=== PATIENT | female | born 1980 | race Caucasian/White ===

== ENCOUNTER 2017-08-01 12:40 | Emergency (ER) | payer MEDICAID ==
[2017-08-01 13:02] VITALS: BP 113/79; PULSE 87; RESP 18; TEMP 98.1; O2SAT 100
--- NOTE | 2017-08-01 16:18 | C.PDOC ---
History Of Present Illness 37 y/o female presents to ED with complaints of subjective fever, chills and dry cough for 2 days. Patient denies recent travel, sick contacts, nausea, vomiting or any other complaints at this time. Chief Complaint (Nursing): Cough, Cold, Congestion History Per: Patient History/Exam Limitations: no limitations Onset/Duration Of Symptoms: Days Current Symptoms Are (Timing): Still Present Past Medical History Reviewed: Historical Data, Nursing Documentation, Vital Signs Vital Signs: Last Vital Signs Temp 98.1 F 08/01/17 13:00 Pulse 87 08/01/17 13:00 Resp 18 08/01/17 13:00 BP 113/79 08/01/17 13:00 Pulse Ox 100 08/01/17 16:18 - Medical History PMH: Anemia Surgical History: Appendectomy Family History: States: No Known Family Hx - Social History Hx Alcohol Use: Yes Hx Substance Use: No - Immunization History Hx Tetanus Toxoid Vaccination: No Hx Influenza Vaccination: No Hx Pneumococcal Vaccination: No Review Of Systems Constitutional: Positive for: Fever, Chills ENT: Negative for: Throat Pain Cardiovascular: Negative for: Chest Pain Respiratory: Positive for: Cough. Negative for: Shortness of Breath Gastrointestinal: Negative for: Nausea, Vomiting Skin: Negative for: Rash Physical Exam - Physical Exam Appears: Non-toxic, No Acute Distress Skin: Normal Color, Warm, Dry, No Rash Head: Atraumatic, Normacephalic Eye(s): bilateral: Normal Inspection, PERRL, EOMI Ear(s): Bilateral: Normal Nose: Normal Oral Mucosa: Moist Throat: Normal, No Erythema, No Exudate Neck: Supple Cardiovascular: Rhythm Regular Respiratory: Normal Breath Sounds, No Rales, No Rhonchi, No Wheezing Gastrointestinal/Abdominal: Soft, No Tenderness, No Guarding, No Rebound Neurological/Psych: Oriented x3, Normal Speech Gait: Steady ED Course And Treatment O2 Sat by Pulse Oximetry: 100 (RA) Pulse Ox Interpretation: Normal Disposition - [facility] - Disposition: HOME/ ROUTINE Disposition Time: 13:40 Condition: GOOD Additional Instructions: Thank you for letting us take care of you today. The emergency medical care you received today was directed at your acute symptoms. If you were prescribed any medication, please fill it and take as directed. It may take several days for your symptoms to resolve. Return to the Emergency Department if your symptoms worsen, do not improve, or if you have any other problems. Please contact your doctor or call one of the physicians/clinics you have been referred to that are listed on the Patient Visit Information form that is included in your discharge packet. Bring any paperwork you were given at discharge with you along with any medications you are taking to your follow up visit. Our treatment cannot replace ongoing medical care by a primary care provider (PCP) outside of the emergency department. Thank you for allowing the [facility] team to be part of your care today. Follow up with your primary doctor in 2-3 days or re-evaluation and further management. Ganesh por dejarnos atenderlo hoy. La atencin mdica de emergencia que recibi hoy estaba dirigida a nathalia sntomas agudos. Si le prescribieron algn medicamento, llnelo y tome segn las indicaciones. Nathalia sntomas pueden tardar varios alexander en resolverse. Regrese al Departamento de Emergencia si nathalia s ntomas empeoran, no mejoran o si tiene algn otro problema. Comunquese con soto mdico o llame a evon de los mdicos / clnicas a los que caceres sido referido que figura en el formulario de Informacin de visita del paciente que se incluye en soto paquete de jus. Traiga todos los documentos que recibi al momento del jus junto con los medicamentos que est tomando en soto visita de seguimiento. Nuestro tratamiento no puede reemplazar la atencin mdica en curso por parte de un proveedor de atencin primaria (PCP) fuera del departamento de emergencias. Ganesh por permitir que el equipo de [facility] sea parte de soto cuidado hoy. Maria De Jesus un seguimiento con soto mdico primario en 2-3 alexander o reevale y administre m s a fondo. Prescriptions: Benzonatate [Tessalon Perles] 100 mg PO Q8 PRN #20 sgl PRN Reason: Cough Ibuprofen [Motrin] 600 mg PO Q6 PRN #20 tab PRN Reason: Pain, Moderate (4-7) Instructions: Upper Respiratory Infection (ED) Forms: Gen Discharge Inst Kinyarwanda Print Language: TURKS [place] - Clinical Impression Clinical Impression: Viral disease - Scribe Statement The provider has reviewed the documentation as recorded by the Seymouribmylene Miller All medical record entries made by the Seymouribmylene were at my direction and personally dictated by me. I have reviewed the chart and agree that the record accurately reflects my personal performance of the history, physical exam, medical decision making, and the department course for this patient. I have also personally directed, reviewed, and agree with the discharge instructions and disposition.
== END 2017-08-01 14:23 | disposition home or self-care (01) ==
LOC: C.ER 12:40
DX: B34.9 Viral infection, unspecified (principal)

== ENCOUNTER 2017-11-06 23:25 | Observation (INO) | payer MEDICAID ==
[2017-11-07] MEDS ORDERED: Sodium Chloride 0.9% 1,000 ML IV ONE ×2 (00:12→05:23)
--- NOTE | 2017-11-07 00:25 | C.PDOC ---
History Of Present Illness 37 y/o female with a PMHx of anemia, presents to the emergency department complaining of abdominal pain, body aches, subjective fever, and diarrhea for 3 days. No cough, sore throat, or sick contacts. Patient did not receive flu shot this year. Time Seen by Provider: 11/07/17 00:05 Chief Complaint (Nursing): GI Problem History Per: Patient History/Exam Limitations: no limitations Onset/Duration Of Symptoms: Days (x3) Current Symptoms Are (Timing): Still Present Associated Symptoms: Fever, Diarrhea Past Medical History Reviewed: Historical Data, Nursing Documentation, Vital Signs Vital Signs: Last Vital Signs Temp 98.2 F 11/09/17 08:07 Pulse 79 11/09/17 08:07 Resp 20 11/09/17 08:07 BP 107/67 11/09/17 08:07 Pulse Ox 97 11/09/17 08:07 - Medical History PMH: Anemia Surgical History: Appendectomy Family History: States: No Known Family Hx - Social History Hx Alcohol Use: Yes Hx Substance Use: No - Immunization History Hx Tetanus Toxoid Vaccination: No Hx Influenza Vaccination: No Hx Pneumococcal Vaccination: No Review Of Systems Except As Marked, All Systems Reviewed And Found Negative. Constitutional: Positive for: Fever, Other (Body aches) ENT: Negative for: Throat Pain Respiratory: Negative for: Cough, Shortness of Breath Gastrointestinal: Positive for: Abdominal Pain, Diarrhea. Negative for: Vomiting Physical Exam - Physical Exam Appears: Non-toxic, No Acute Distress Skin: Normal Color, Warm, Dry Head: Atraumatic, Normacephalic Eye(s): bilateral: Normal Inspection, PERRL, EOMI Ear(s): Bilateral: Normal Nose: Normal Oral Mucosa: Moist Throat: Normal Neck: Normal ROM, Supple Chest: Symmetrical Cardiovascular: Rhythm Regular, No Murmur Respiratory: Normal Breath Sounds, No Accessory Muscle Use Gastrointestinal/Abdominal: Soft, Tenderness (Mild nonfocal tenderness), No Distention Extremity: Bilateral: Atraumatic, Normal Color And Temperature, Normal ROM Neurological/Psych: Oriented x3, Normal Speech ED Course And Treatment - Laboratory Results Result Diagrams: 11/08/17 07:42 11/08/17 07:42 O2 Sat by Pulse Oximetry: 100 (RA) Pulse Ox Interpretation: Normal - CT Scan/US CT abd/pelvis Other Rad Studies (CT/US): Read By Radiologist, Radiology Report Reviewed CT/US Interpretation: FINDINGS: Lower thorax: No acute findings. ABDOMEN: Liver: Fatty liver. Gallbladder and bile ducts: Unremarkable. No ductal dilation. Pancreas: Unremarkable. No mass. No ductal dilation. Spleen: Unremarkable. No splenomegaly. Adrenals: Unremarkable. No mass. Kidneys and ureters: Nonobstructive left upper pole renal stone. Stomach and bowel: There is diffuse colonic thickening with intraluminal fluid suspicious for. infectious or inflammatory colitis. There are nonspecific fluid filled small bowel loops. These findings. can represent ileus versus enteritis versus slow transit versus peristalsis. No obstruction. Appendix: The appendix is not seen. PELVIS: Bladder: Bladder distention. Correlation with patient's voiding status is recommended. Reproductive: Enlarged uterus with multiple uterine fibroids. ABDOMEN and PELVIS: Intraperitoneal space: Unremarkable. No free air. No significant fluid collection. Bones/joints: No acute fracture. No dislocation. Soft tissues: There is a fat-containing umbilical hernia. Vasculature: Unremarkable. No abdominal aortic aneurysm. Lymph nodes: Multiple subcentimeter mesenteric and ileocolic lymph nodes. Findings are. nonspecific but may represent mesenteric adenitis. IMPRESSION: 1. There is diffuse colonic thickening with intraluminal fluid suspicious for infectious or inflammatory. colitis. 2. Enlarged uterus with multiple uterine fibroids. Correlation with internal medicine/gastroenterology evaluation and further workup or followup as. recommended by patient's clinical data. Medical Decision Making Medical Decision Making: Impression: 37 year old with abdominal pain, subjective fever, diarrhea, bodyaches Time: 00:12 Initial Plan: * Lipase * CMP * CBC * PTT * Prothrombin time * HCG, qualitative urine * Urinalysis * Tylenol 975 mg PO * IV fluids * Flu swab Labs reviewed. Hemoglobin is at baseline. Negative flu. Potassium is low. 2:19 Ordered 40 meq potassium chloride PO and 4 mg Zofran IVP. Pending CT abd/ pelvis without contrast. IMPRESSION: 1. There is diffuse colonic thickening with intraluminal fluid suspicious for infectious or inflammatory colitis. 2. Enlarged uterus with multiple uterine fibroids. Correlation with internal medicine/gastroenterology evaluation and further workup or followup as recommended by patient's clinical data. 500 pt reassesed states feels well to go home, however upon dc pt states she still feels too weak and lightheaded for dc. will obs for colitis, dehydration, hypokalemia, Disposition - Disposition Disposition: HOME/ ROUTINE Disposition Time: 05:06 Condition: STABLE - Clinical Impression Clinical Impression: Colitis - Scribe Statement The provider has reviewed the documentation as recorded by the Scribe (Tala Mishra) Provider Attestation: All medical record entries made by the Scribe were at my direction and personally dictated by me. I have reviewed the chart and agree that the record accurately reflects my personal performance of the history, physical exam, medical decision making, and the department course for this patient. I have also personally directed, reviewed, and agree with the discharge instructions and disposition.
[2017-11-07] MEDS ORDERED: Sodium Chloride 0.9% 1,000 ML ONE (01:45)
[2017-11-07 01:56] LABS: BASO % 0.7 % (0.0-2.0); HEMOGLOBIN 9.9 g/dL (11.0-16.0); LYMPH # 0.9 K/uL (1.0-4.3); LYMPH % 13.8 % (20.0-40.0); MEAN CELL VOLUME 76.3 fL (81.0-99.0); MEAN CORPUSCULAR HEMOGLOBIN 24.9 pg (27.0-31.0); MEAN CORPUSCULAR HGB CONC 32.6 g/dL (33.0-37.0); MONO # 0.4 K/uL (0.0-0.8); MONO % 5.7 % (0.0-10.0); NEUT # 5.4 K/uL (1.8-7.0); NEUT % 79.8 % (50.0-75.0); NRBC % 0.1 % (0.0-2.0); RBC 3.98 Mil/uL (3.80-5.20); WHITE BLOOD COUNT 6.7 K/uL (4.8-10.8)
[2017-11-07 02:04] LABS: INR 1.1; PROTHROMBIN TIME 12.8 SECONDS (9.7-12.2)
[2017-11-07 02:18] LABS: ALBUMIN 3.6 g/dL (3.5-5.0); ALT/SGPT 24 U/L (9-52); AST/SGOT 23 U/L (14-36); BLOOD UREA NITROGEN 9 mg/dL (7-17); CALCIUM 8.2 mg/dl (8.6-10.4); GFR AFRICAN-AMERICAN > 60; GFR NON-AFRICAN AMERICAN > 60; LIPASE 96 U/L (23-300)
[2017-11-07] MEDS ORDERED: Potassium Chloride 20 mEq ER Tab PO STA (02:19)
[2017-11-07 02:35] LABS: HCG,QUALITATIVE URINE NEGATIVE (NEGATIVE)
[2017-11-07] MEDS ORDERED: Potassium Chloride 20 mEq ER Tab PO ONE (02:50)
[2017-11-07 02:57] LABS: SQUAMOUS EPITHIAL 6 /hpf (0-5); URINE BACTERIA RARE (<OCC); URINE BILIRUBIN NEGATIVE (NEGATIVE); URINE BLOOD TRACE (NEGATIVE); URINE CLARITY Hazy (Clear); URINE COLOR Yellow (YELLOW); URINE GLUCOSE (UA) NORMAL (Normal); URINE HYALINE CAST 0-2 /lpf (0-2); URINE LEUKOCYTE ESTERASE TRACE Leu/uL (Negative); URINE PROTEIN 1+ mg/dL (NEGATIVE); URINE UROBILINOGEN NORMAL mg/dL (0.2-1.0)
[2017-11-07] MEDS ORDERED: Iodixanol 320 MG/ML 100 ML BOTTLE IV ONE (03:55)
--- NOTE | 2017-11-07 04:53 | CT ---
EXAM: CT Abdomen and Pelvis With Intravenous Contrast CLINICAL HISTORY: 37 years old, female; Pain; Abdominal pain; Generalized; Additional info: Upper abd pain TECHNIQUE: Axial computed tomography images of the abdomen and pelvis with intravenous contrast. All CT scans at this facility use one or more dose reduction techniques, viz.: automated exposure control; ma/kV adjustment per patient size (including targeted exams where dose is matched to indication; i.e. head); or iterative reconstruction technique. 594 images are submitted. Coronal and sagittal reformatted images were created and reviewed. Axial reformatted images were created and reviewed. CONTRAST: 100 mL of [id number] administered intravenously. COMPARISON: No relevant prior studies available. FINDINGS: Lower thorax: No acute findings. ABDOMEN: Liver: Fatty liver. Gallbladder and bile ducts: Unremarkable. No ductal dilation. Pancreas: Unremarkable. No mass. No ductal dilation. Spleen: Unremarkable. No splenomegaly. Adrenals: Unremarkable. No mass. Kidneys and ureters: Nonobstructive left upper pole renal stone. Stomach and bowel: There is diffuse colonic thickening with intraluminal fluid suspicious for infectious or inflammatory colitis. There are nonspecific fluid filled small bowel loops. These findings can represent ileus versus enteritis versus slow transit versus peristalsis. No obstruction. Appendix: The appendix is not seen. PELVIS: Bladder: Bladder distention. Correlation with patient's voiding status is recommended. Reproductive: Enlarged uterus with multiple uterine fibroids. ABDOMEN and PELVIS: Intraperitoneal space: Unremarkable. No free air. No significant fluid collection. Bones/joints: No acute fracture. No dislocation. Soft tissues: There is a fat-containing umbilical hernia. Vasculature: Unremarkable. No abdominal aortic aneurysm. Lymph nodes: Multiple subcentimeter mesenteric and ileocolic lymph nodes. Findings are nonspecific but may represent mesenteric adenitis. IMPRESSION: 1. There is diffuse colonic thickening with intraluminal fluid suspicious for infectious or inflammatory colitis. 2. Enlarged uterus with multiple uterine fibroids. Correlation with internal medicine/gastroenterology evaluation and further workup or followup as recommended by patient's clinical data.
[2017-11-07 07:09] VITALS: RESP 20
[2017-11-07] MEDS: Sodium Chloride 0.9% 1,000 ML IV SCH (10:00)
--- NOTE | 2017-11-07 12:07 | CP.PCM.HP ---
Present on Admission - Present on Admission Any Indicators Present on Admission: No Past Patient History - Infectious Disease Hx of Infectious Diseases: None - Past Medical History & Family History Past Medical History?: Yes - Past Social History Smoking Status: Never Smoked - HEMATOLOGICAL/ONCOLOGICAL Hx Anemia: Yes - MUSCULOSKELETAL/RHEUMATOLOGICAL Hx Falls: No - PSYCHIATRIC Hx Substance Use: No - SURGICAL HISTORY Hx Appendectomy: Yes - ANESTHESIA Hx Anesthesia: Yes Hx Anesthesia Reactions: No Meds Home Medications: Home Medication List Medication Instructions Recorded Confirmed Type Ciprofloxacin [Cipro] 500 mg PO BID #14 tab 11/07/17 Rx metroNIDAZOLE [Flagyl] 500 mg PO TID #21 tab 11/07/17 Rx Allergies/Adverse Reactions: Allergies Allergy/AdvReac Type Severity Reaction Status Date / Time Penicillins Allergy Severe SHORTNESS Verified 11/06/17 23:28 OF BREATH Physical Exam - Constitutional Appears: Well - Head Exam Head Exam: ATRAUMATIC, NORMAL INSPECTION, NORMOCEPHALIC - Eye Exam Eye Exam: EOMI, Normal appearance, PERRL Pupil Exam: NORMAL ACCOMODATION, PERRL - ENT Exam ENT Exam: Mucous Membranes Moist, Normal Exam - Neck Exam Neck exam: Positive for: Normal Inspection - Respiratory Exam Respiratory Exam: Decreased Breath Sounds - Cardiovascular Exam Cardiovascular Exam: REGULAR RHYTHM, +S1, +S2 - GI/Abdominal Exam GI & Abdominal Exam: Diminished Bowel Sounds, Soft - Rectal Exam Rectal Exam: Deferred Results - Vital Signs Recent Vital Signs: Last Vital Signs Temp 98.3 F 11/07/17 08:28 Pulse 78 11/07/17 08:28 Resp 20 11/07/17 08:28 BP 94/60 L 11/07/17 08:28 Pulse Ox 96 11/07/17 08:28 - Labs Result Diagrams: 11/07/17 01:54 11/07/17 01:54 Labs: Laboratory Results - last 24 hr 11/07/17 11/07/17 11/07/17 00:12 01:54 01:54 WBC 6.7 RBC 3.98 Hgb 9.9 L Hct 30.3 L MCV 76.3 L D MCH 24.9 L MCHC 32.6 L RDW 16.0 H Plt Count 362 MPV 8.0 Neut % (Auto) 79.8 H Lymph % (Auto) 13.8 L [place] % (Auto) 5.7 Eos % (Auto) 0.0 Baso % (Auto) 0.7 Neut # (Auto) 5.4 Lymph # (Auto) 0.9 L [place] # (Auto) 0.4 Eos # (Auto) 0.0 Baso # (Auto) 0.0 PT 12.8 H INR 1.1 APTT 29 Sodium Potassium Chloride Carbon Dioxide Anion Gap BUN Creatinine Est GFR ( Amer) Est GFR (Non-Af Amer) Random Glucose Calcium Total Bilirubin AST ALT Alkaline Phosphatase Total Protein Albumin Globulin Albumin/Globulin Ratio Lipase Urine Color Yellow Urine Clarity Hazy Urine pH 6.0 Ur Specific Archer 1.017 Urine Protein 1+ H Urine Glucose (UA) Normal Urine Ketones Negative Urine Blood Trace H Urine Nitrate Negative Urine Bilirubin Negative Urine Urobilinogen Normal Ur Leukocyte Esterase Trace Urine WBC (Auto) 6 H Urine RBC (Auto) 1 Ur Squamous Epith Cells 6 H Urine Bacteria Rare Hyaline Casts 0-2 Urine HCG, Qual Negative Influenza Typ A,B (EIA) 11/07/17 11/07/17 01:54 01:54 WBC RBC Hgb Hct MCV MCH MCHC RDW Plt Count MPV Neut % (Auto) Lymph % (Auto) [place] % (Auto) Eos % (Auto) Baso % (Auto) Neut # (Auto) Lymph # (Auto) [place] # (Auto) Eos # (Auto) Baso # (Auto) PT INR APTT Sodium 137 Potassium 3.0 L Chloride 103 Carbon Dioxide 20 L Anion Gap 18 BUN 9 Creatinine 0.7 Est GFR ( Amer) > 60 Est GFR (Non-Af Amer) > 60 Random Glucose 95 Calcium 8.2 L Total Bilirubin 0.4 AST 23 ALT 24 Alkaline Phosphatase 80 Total Protein 7.2 Albumin 3.6 Globulin 3.5 Albumin/Globulin Ratio 1.0 Lipase 96 Urine Color Urine Clarity Urine pH Ur Specific Archer Urine Protein Urine Glucose (UA) Urine Ketones Urine Blood Urine Nitrate Urine Bilirubin Urine Urobilinogen Ur Leukocyte Esterase Urine WBC (Auto) Urine RBC (Auto) Ur Squamous Epith Cells Urine Bacteria Hyaline Casts Urine HCG, Qual Influenza Typ A,B (EIA) Negative for flu a/b Assessment & Plan - Assessment and Plan (Free Text) Plan: KCl supplementation continue IV Cipro GI consultations Abdominal CT seen Protonix Lovenox Surgical consult as needed
[2017-11-07] MEDS: Ciprofloxacin 400mg/200ml D5W 400 MG/200 ML BAG IVPB SCH ×2 (12:58→13:19)
[2017-11-07] MEDS: metroNIDAZOLE IV 500 mg/100 ml 500 MG/100 ML BAG IVPB SCH ×2 (14:23→21:11)
[2017-11-07 22:57] LABS: BASO % 0.9 % (0.0-2.0); EOS % 0.5 % (0.0-4.0); LYMPH # 1.6 K/uL (1.0-4.3); MEAN CELL VOLUME 76.9 fL (81.0-99.0); MEAN CORPUSCULAR HEMOGLOBIN 24.4 pg (27.0-31.0); MEAN CORPUSCULAR HGB CONC 31.7 g/dL (33.0-37.0); MEAN PLATELET VOLUME 7.7 fL (7.2-11.7); MONO # 0.3 K/uL (0.0-0.8); MONO % 7.7 % (0.0-10.0); NEUT # 2.5 K/uL (1.8-7.0); NEUT % 55.9 % (50.0-75.0); NRBC % 0.1 % (0.0-2.0); RBC 3.67 Mil/uL (3.80-5.20); RED CELL DISTRIBUTION WIDTH 16.1 % (11.5-14.5); WHITE BLOOD COUNT 4.5 K/uL (4.8-10.8)
[2017-11-07 23:10] LABS: ALBUMIN 3.1 g/dL (3.5-5.0); ALT/SGPT 25 U/L (9-52); AST/SGOT 29 U/L (14-36); BLOOD UREA NITROGEN 4 mg/dL (7-17); CALCIUM 7.6 mg/dl (8.6-10.4); GFR AFRICAN-AMERICAN > 60; GFR NON-AFRICAN AMERICAN > 60
[2017-11-08] MEDS: Ciprofloxacin 400mg/200ml D5W 400 MG/200 ML BAG IVPB SCH ×2 (00:10→12:03)
[2017-11-08] MEDS: metroNIDAZOLE IV 500 mg/100 ml 500 MG/100 ML BAG IVPB SCH ×3 (05:38→21:24)
[2017-11-08] MEDS: Sodium Chloride 0.9% 1,000 ML IV SCH ×2 (05:38→10:08)
[2017-11-08 08:06] LABS: BASO % 0.7 % (0.0-2.0); EOS % 1.2 % (0.0-4.0); HEMOGLOBIN 8.1 g/dL (11.0-16.0); LYMPH # 1.7 K/uL (1.0-4.3); LYMPH % 45.3 % (20.0-40.0); MEAN CELL VOLUME 76.3 fL (81.0-99.0); MEAN CORPUSCULAR HEMOGLOBIN 24.8 pg (27.0-31.0); MEAN CORPUSCULAR HGB CONC 32.6 g/dL (33.0-37.0); MEAN PLATELET VOLUME 7.6 fL (7.2-11.7); MONO # 0.4 K/uL (0.0-0.8); MONO % 11.8 % (0.0-10.0); NEUT # 1.5 K/uL (1.8-7.0); NRBC % 0.2 % (0.0-2.0); RBC 3.27 Mil/uL (3.80-5.20); WHITE BLOOD COUNT 3.7 K/uL (4.8-10.8)
[2017-11-08 08:14] LABS: BLOOD UREA NITROGEN 3 mg/dL (7-17); CALCIUM 7.6 mg/dl (8.6-10.4); GFR AFRICAN-AMERICAN > 60; GFR NON-AFRICAN AMERICAN > 60
--- NOTE | 2017-11-08 09:49 | CP.PCM.CON ---
<Nakita Smith - Last Filed: 11/08/17 10:02> History of Present Illness - History of Present Illness History of Present Illness: Gastroenterology Note for Dr. Hancock's Service Reason for Consult: Colitis seen on CT Scan HPI: 37 year old Female with PMHx significant for Iron Deficiency Anemia who presented to the hospital with 3 days of fever, chills, weakness, abdominal pain, and nonbloody diarrhea. Admitted to sick contacts, no recent travel. Patient reports she was cleaning a client's house on , when she noticed the client's was very ill, spending most of his time in the bathroom. The client's just returned from traveling and has profuse diarrhea. Patient reports when she returned home night, she started to have chills. Tuesday afternoon she noticed she started to have subjective fevers. Tuesday evening until day of admission, she started to have profuse nonbloody, diarrhea. CT abdomen and pelvis revealed diffuse colitis. This has never happened to her before. She admits to generalized abdominal pain and continued diarrhea. 12 point ROS unremarkable, unless noted above. PMHx: Iron Deficiency Anemia (requiring a blood transfusion in 06/2017) PSHx: Appendectomy (2000), Endoscopy [place]10 [place] in [place] country 2/2 abdominal pain- results unremarkable) Meds: Iron, MV All: PCN- anaphylaxis SHx: Denied any tobacco, alcohol, or illicit drug use. Employed as a maid. FHx: Unremarkable for GI issues or malignancies Past Patient History - Infectious Disease Hx of Infectious Diseases: None - Past Medical History & Family History Past Medical History?: Yes - Past Social History Smoking Status: Never Smoked - HEMATOLOGICAL/ONCOLOGICAL Hx Anemia: Yes - MUSCULOSKELETAL/RHEUMATOLOGICAL Hx Falls: No - PSYCHIATRIC Hx Substance Use: No - SURGICAL HISTORY Hx Appendectomy: Yes - ANESTHESIA Hx Anesthesia: Yes Hx Anesthesia Reactions: No Meds Home Medications: Home Medication List Medication Instructions Recorded Confirmed Type Ciprofloxacin [Cipro] 500 mg PO BID #14 tab 11/07/17 Rx metroNIDAZOLE [Flagyl] 500 mg PO TID #21 tab 11/07/17 Rx Allergies/Adverse Reactions: Allergies Allergy/AdvReac Type Severity Reaction Status Date / Time Penicillins Allergy Severe SHORTNESS Verified 11/06/17 23:28 OF BREATH - Medications Medications: Current Medications Sodium Chloride (Sodium Chloride 0.9%) 1,000 mls @ 80 mls/hr IV .[id number] [facility] Last Admin: 11/08/17 05:38 Dose: 80 mls/hr Ciprofloxacin (Cipro 400mg/200ml Dsw) 400 mg in 200 mls @ 133 mls/hr IVPB Q12H [facility] PRN Reason: Protocol Last Admin: 11/08/17 00:10 Dose: 133 mls/hr Metronidazole (Flagyl) 500 mg in 100 mls @ 100 mls/hr IVPB Q8 [facility] PRN Reason: Protocol Last Admin: 11/08/17 05:38 Dose: 100 mls/hr Ketorolac Tromethamine (Toradol) 30 mg IVP Q8H PRN PRN Reason: Pain, severe (8-10) Last Admin: 11/07/17 15:38 Dose: 30 mg Ondansetron HCl (Zofran Inj) 4 mg IVP Q6 PRN PRN Reason: Nausea/Vomiting Pantoprazole Sodium (Protonix Inj) 40 mg IVP DAILY [facility] Pneumococcal Polyvalent Vaccine (Pneumovax 23 Vaccine) 0.5 ml IM .ONCE ONE Stop: 11/08/17 10:01 Physical Exam - Constitutional Appears: No Acute Distress - Head Exam Head Exam: NORMAL INSPECTION, NORMOCEPHALIC - Eye Exam Eye Exam: EOMI, Normal appearance, PERRL Pupil Exam: NORMAL ACCOMODATION - ENT Exam ENT Exam: Mucous Membranes Moist - Respiratory Exam Respiratory Exam: Clear to Auscultation Bilateral, NORMAL BREATHING PATTERN. absent: Decreased Breath Sounds, Wheezes - Cardiovascular Exam Cardiovascular Exam: RRR - GI/Abdominal Exam GI & Abdominal Exam: Normal Bowel Sounds, Soft, Tenderness (TTP LLQ, below umbilicus ). absent: Distended, Organomegaly, Rigid - Extremities Exam Extremities exam: Positive for: normal inspection, pedal pulses present. Negative for: pedal edema, tenderness - Back Exam Back exam: NORMAL INSPECTION - Neurological Exam Neurological exam: Alert, CN II-XII Intact, Oriented x3 - Psychiatric Exam Psychiatric exam: Normal Affect, Normal Mood Results - Vital Signs Recent Vital Signs: Last Vital Signs Temp 98.2 F 11/08/17 08:00 Pulse 66 11/08/17 08:00 Resp 20 11/08/17 08:00 BP 108/65 11/08/17 08:00 Pulse Ox 99 11/08/17 08:00 - Labs Result Diagrams: 11/08/17 07:42 11/08/17 07:42 Labs: Laboratory Results - last 24 hr 11/07/17 11/07/17 11/07/17 22:00 22:55 22:55 WBC 4.5 L RBC 3.67 L Hgb 9.0 L Hct 28.2 L MCV 76.9 L MCH 24.4 L MCHC 31.7 L RDW 16.1 H Plt Count 356 MPV 7.7 Neut % (Auto) 55.9 Lymph % (Auto) 35.0 Hughes % (Auto) 7.7 Eos % (Auto) 0.5 Baso % (Auto) 0.9 Neut # (Auto) 2.5 Lymph # (Auto) 1.6 Hughes # (Auto) 0.3 Eos # (Auto) 0.0 Baso # (Auto) 0.0 Sodium 139 Potassium 3.3 L Chloride 106 Carbon Dioxide 22 Anion Gap 14 BUN 4 L Creatinine 0.6 L Est GFR ( Amer) > 60 Est GFR (Non-Af Amer) > 60 Random Glucose 103 Calcium 7.6 L Total Bilirubin 0.2 AST 29 ALT 25 Alkaline Phosphatase 65 Total Protein 6.4 Albumin 3.1 L Globulin 3.2 Albumin/Globulin Ratio 1.0 C. difficile Ag & Toxin Negative 11/08/17 11/08/17 07:42 07:42 WBC 3.7 L RBC 3.27 L Hgb 8.1 L Hct 25.0 L MCV 76.3 L MCH 24.8 L MCHC 32.6 L RDW 16.0 H Plt Count 327 MPV 7.6 Neut % (Auto) 41.0 L Lymph % (Auto) 45.3 H Hughes % (Auto) 11.8 H Eos % (Auto) 1.2 Baso % (Auto) 0.7 Neut # (Auto) 1.5 L Lymph # (Auto) 1.7 Hughes # (Auto) 0.4 Eos # (Auto) 0.0 Baso # (Auto) 0.0 Sodium 138 Potassium 3.4 L Chloride 107 Carbon Dioxide 23 Anion Gap 11 BUN 3 L Creatinine 0.6 L Est GFR ( Amer) > 60 Est GFR (Non-Af Amer) > 60 Random Glucose 81 Calcium 7.6 L Total Bilirubin AST ALT Alkaline Phosphatase Total Protein Albumin Globulin Albumin/Globulin Ratio C. difficile Ag & Toxin Assessment & Plan - Assessment and Plan (Free Text) Assessment: 37 year old Female with PMHx significant for Iron Deficiency Anemia who presented to the hospital with 3 days of fever, chills, weakness, abdominal pain, and nonbloody diarrhea; admitted for colitis. Plan: Colitis Likely Infectious - Gastroenterology consulted - Dr. Hancock - Continue with IVF, Antibiotic Regimen, Advance Diet as Tolerated. - Patient will need outpatient Colonoscopy in 6-8 weeks once colitis has resolved. - Stool studies ordered. - Pain and antiemetic as needed. Imaging: - CT Abdomen/ Pelvis: There is diffuse colonic thickening with intraluminal fluid suspicious for infectious or inflammatory. colitis. Enlarged uterus with multiple uterine fibroids. Medications: - IVF, Ciprofloxacin and Flagyl (11/07/17) Fibroid Uterus - Will need outpatient [employer] follow up Iron Deficiency Anemia - History of blood transfusion - Will need to continue Iron supplements s/p colitis DW Dr. Hancock, Nakita Smith DO, PGY-1 <Dani Hancock - Last Filed: 11/08/17 14:14> Meds - Medications Medications: Current Medications Sodium Chloride (Sodium Chloride 0.9%) 1,000 mls @ 80 mls/hr IV .[id number] [facility] Last Admin: 11/08/17 10:08 Dose: Not Given Ciprofloxacin (Cipro 400mg/200ml Dsw) 400 mg in 200 mls @ 133 mls/hr IVPB Q12H [facility] PRN Reason: Protocol Last Admin: 11/08/17 12:03 Dose: 133 mls/hr Metronidazole (Flagyl) 500 mg in 100 mls @ 100 mls/hr IVPB Q8 [facility] PRN Reason: Protocol Last Admin: 11/08/17 05:38 Dose: 100 mls/hr Ketorolac Tromethamine (Toradol) 30 mg IVP Q8H PRN PRN Reason: Pain, severe (8-10) Last Admin: 11/07/17 15:38 Dose: 30 mg Ondansetron HCl (Zofran Inj) 4 mg IVP Q6 PRN PRN Reason: Nausea/Vomiting Pantoprazole Sodium (Protonix Inj) 40 mg IVP DAILY [facility] Last Admin: 11/08/17 10:06 Dose: 40 mg Results - Vital Signs Recent Vital Signs: Last Vital Signs Temp 98.2 F 11/08/17 08:00 Pulse 66 11/08/17 08:00 Resp 20 11/08/17 08:00 BP 108/65 11/08/17 08:00 Pulse Ox 99 11/08/17 08:00 - Labs Result Diagrams: 11/08/17 07:42 11/08/17 07:42 Labs: Laboratory Results - last 24 hr 11/07/17 11/07/17 11/07/17 22:00 22:55 22:55 WBC 4.5 L RBC 3.67 L Hgb 9.0 L Hct 28.2 L MCV 76.9 L MCH 24.4 L MCHC 31.7 L RDW 16.1 H Plt Count 356 MPV 7.7 Neut % (Auto) 55.9 Lymph % (Auto) 35.0 Hughes % (Auto) 7.7 Eos % (Auto) 0.5 Baso % (Auto) 0.9 Neut # (Auto) 2.5 Lymph # (Auto) 1.6 Hughes # (Auto) 0.3 Eos # (Auto) 0.0 Baso # (Auto) 0.0 Sodium 139 Potassium 3.3 L Chloride 106 Carbon Dioxide 22 Anion Gap 14 BUN 4 L Creatinine 0.6 L Est GFR ( Amer) > 60 Est GFR (Non-Af Amer) > 60 Random Glucose 103 Calcium 7.6 L Total Bilirubin 0.2 AST 29 ALT 25 Alkaline Phosphatase 65 Total Protein 6.4 Albumin 3.1 L Globulin 3.2 Albumin/Globulin Ratio 1.0 C. difficile Ag & Toxin Negative 11/08/17 11/08/17 07:42 07:42 WBC 3.7 L RBC 3.27 L Hgb 8.1 L Hct 25.0 L MCV 76.3 L MCH 24.8 L MCHC 32.6 L RDW 16.0 H Plt Count 327 MPV 7.6 Neut % (Auto) 41.0 L Lymph % (Auto) 45.3 H Hughes % (Auto) 11.8 H Eos % (Auto) 1.2 Baso % (Auto) 0.7 Neut # (Auto) 1.5 L Lymph # (Auto) 1.7 Hughes # (Auto) 0.4 Eos # (Auto) 0.0 Baso # (Auto) 0.0 Sodium 138 Potassium 3.4 L Chloride 107 Carbon Dioxide 23 Anion Gap 11 BUN 3 L Creatinine 0.6 L Est GFR ( Amer) > 60 Est GFR (Non-Af Amer) > 60 Random Glucose 81 Calcium 7.6 L Total Bilirubin AST ALT Alkaline Phosphatase Total Protein Albumin Globulin Albumin/Globulin Ratio C. difficile Ag & Toxin Attending/Attestation - Attestation I have personally seen and examined this patient.: Yes I have fully participated in the care of the patient.: Yes I have reviewed all pertinent clinical information: Yes Notes (Text): 11/08/17 14:07 I have seen and examined patient with GI fellow and medical care administrator. Agree with above documentation with the following additions. In brief, this is a 37 year old female without significant past medical history who presents to hospital with complaint of abdominal pain and diarrhea which began 3 days ago. Prior to this she was in usual state of health. She describes onset of multiple episodes of non-bloody diarrhea with generalized abdominal cramping. She does report sick contact exposure while at work but denies recent travel, unusual food consumption, or antibiotic use. She denies nausea, vomiting but endorses subjective fevers. No prior endoscopic evaluation. Review of vitals from today are normal. Additional physical examination: Skin: warm, dry, no suspicious lesions Abdominal pain, diarrhea Colitis - unclear etiology, though suspected infectious given clinical scenario - Liquid diet as tolerated - Obtain stool studies (culture, O/P, giardia, c-difficile) - Continue with antibiotic therapy - Follow up blood cultures - Patient will eventually benefit from elective outpatient colonoscopy 2 months following resolution of acute symptoms. Will continue to monitor patient clinical course.
[2017-11-08] MEDS ORDERED: Pneumococcal 23-Valent Vaccine IM ONE (10:00)
[2017-11-08] MEDS ORDERED: Influenza Vaccine 60 mcg/0.5 mL SYR (4YR UP) IM ONE (10:00)
[2017-11-08] MEDS ORDERED: Potassium Chloride 20 mEq ER Tab PO ONE (10:15)
--- NOTE | 2017-11-08 17:17 | CP.PCM.PN ---
Subjective - Date & Time of Evaluation Date of Evaluation: 11/08/17 Time of Evaluation: 08:05 - Subjective Subjective: clinically same Objective - Vital Signs/Intake and Output Vital Signs (last 24 hours): Temp Pulse Resp BP Pulse Ox 98 F 66 20 99/61 L 99 11/08/17 15:15 11/08/17 15:15 11/08/17 15:15 11/08/17 15:15 11/08/17 15:15 Intake and Output: 11/08/17 11/08/17 06:59 18:59 Intake Total 1050 2200 Balance 1050 2200 - Medications Medications: Current Medications Sodium Chloride (Sodium Chloride 0.9%) 1,000 mls @ 80 mls/hr IV .[id number] [facility] Last Admin: 11/08/17 10:08 Dose: Not Given Ciprofloxacin (Cipro 400mg/200ml Dsw) 400 mg in 200 mls @ 133 mls/hr IVPB Q12H [facility] PRN Reason: Protocol Last Admin: 11/08/17 12:03 Dose: 133 mls/hr Metronidazole (Flagyl) 500 mg in 100 mls @ 100 mls/hr IVPB Q8 [facility] PRN Reason: Protocol Last Admin: 11/08/17 14:18 Dose: 100 mls/hr Ketorolac Tromethamine (Toradol) 30 mg IVP Q8H PRN PRN Reason: Pain, severe (8-10) Last Admin: 11/07/17 15:38 Dose: 30 mg Ondansetron HCl (Zofran Inj) 4 mg IVP Q6 PRN PRN Reason: Nausea/Vomiting Pantoprazole Sodium (Protonix Inj) 40 mg IVP DAILY [facility] Last Admin: 11/08/17 10:06 Dose: 40 mg - Labs Labs: 11/08/17 07:42 11/08/17 07:42 PT 12.8 SECONDS (9.7-12.2) H 11/07/17 01:54 INR 1.1 11/07/17 01:54 APTT 29 SECONDS (21-34) 11/07/17 01:54 - Constitutional Appears: Well - Head Exam Head Exam: ATRAUMATIC, NORMAL INSPECTION, NORMOCEPHALIC - Eye Exam Eye Exam: EOMI, Normal appearance, PERRL Pupil Exam: NORMAL ACCOMODATION, PERRL - ENT Exam ENT Exam: Mucous Membranes Moist, Normal Exam - Neck Exam Neck Exam: Full ROM, Normal Inspection. absent: Lymphadenopathy - Respiratory Exam Respiratory Exam: Decreased Breath Sounds - Cardiovascular Exam Cardiovascular Exam: REGULAR RHYTHM, +S1, +S2 - GI/Abdominal Exam GI & Abdominal Exam: Soft, Diminished Bowel Sounds - Rectal Exam Rectal Exam: Deferred Assessment and Plan - Assessment and Plan (Free Text) Plan: Monitor potassium Continue IV antibiotic CT scan seen GI Continue same as ordered
--- NOTE | 2017-11-08 17:18 | CP.PCM.PN ---
Subjective - Date & Time of Evaluation Date of Evaluation: 11/08/17 Time of Evaluation: 08:00 - Subjective Subjective: clinically same Objective - Vital Signs/Intake and Output Vital Signs (last 24 hours): Temp Pulse Resp BP Pulse Ox 98 F 66 20 99/61 L 99 11/08/17 15:15 11/08/17 15:15 11/08/17 15:15 11/08/17 15:15 11/08/17 15:15 Intake and Output: 11/08/17 11/08/17 06:59 18:59 Intake Total 1050 2200 Balance 1050 2200 - Medications Medications: Current Medications Sodium Chloride (Sodium Chloride 0.9%) 1,000 mls @ 80 mls/hr IV .[id number] [facility] Last Admin: 11/08/17 10:08 Dose: Not Given Ciprofloxacin (Cipro 400mg/200ml Dsw) 400 mg in 200 mls @ 133 mls/hr IVPB Q12H [facility] PRN Reason: Protocol Last Admin: 11/08/17 12:03 Dose: 133 mls/hr Metronidazole (Flagyl) 500 mg in 100 mls @ 100 mls/hr IVPB Q8 [facility] PRN Reason: Protocol Last Admin: 11/08/17 14:18 Dose: 100 mls/hr Ketorolac Tromethamine (Toradol) 30 mg IVP Q8H PRN PRN Reason: Pain, severe (8-10) Last Admin: 11/07/17 15:38 Dose: 30 mg Ondansetron HCl (Zofran Inj) 4 mg IVP Q6 PRN PRN Reason: Nausea/Vomiting Pantoprazole Sodium (Protonix Inj) 40 mg IVP DAILY [facility] Last Admin: 11/08/17 10:06 Dose: 40 mg - Labs Labs: 11/08/17 07:42 11/08/17 07:42 PT 12.8 SECONDS (9.7-12.2) H 11/07/17 01:54 INR 1.1 11/07/17 01:54 APTT 29 SECONDS (21-34) 11/07/17 01:54 - Constitutional Appears: Well - Head Exam Head Exam: ATRAUMATIC, NORMAL INSPECTION, NORMOCEPHALIC - Eye Exam Eye Exam: EOMI, Normal appearance, PERRL Pupil Exam: NORMAL ACCOMODATION, PERRL - ENT Exam ENT Exam: Mucous Membranes Moist, Normal Exam - Neck Exam Neck Exam: Full ROM, Normal Inspection. absent: Lymphadenopathy - Respiratory Exam Respiratory Exam: Decreased Breath Sounds - Cardiovascular Exam Cardiovascular Exam: REGULAR RHYTHM, +S1, +S2 - GI/Abdominal Exam GI & Abdominal Exam: Soft, Diminished Bowel Sounds - Rectal Exam Rectal Exam: Deferred
[2017-11-09] MEDS: Ciprofloxacin 400mg/200ml D5W 400 MG/200 ML BAG IVPB SCH ×2 (00:03→12:02)
[2017-11-09] MEDS: Sodium Chloride 0.9% 1,000 ML IV SCH ×2 (00:04→11:00)
[2017-11-09] MEDS: metroNIDAZOLE IV 500 mg/100 ml 500 MG/100 ML BAG IVPB SCH ×2 (05:55→14:27)
--- NOTE | 2017-11-09 10:23 | CP.PCM.PN ---
<Nakita Smith - Last Filed: 11/09/17 10:19> Subjective - Date & Time of Evaluation Date of Evaluation: 11/09/17 Time of Evaluation: 07:00 - Subjective Subjective: Gastroenterology Follow Up Note Patient was seen and examined at bedside. Patient reported she tolerated CLD, having 1 normal, formed, nonbloody bowel movement last night. Denied any nausea , vomiting associated with the CLD; abdominal pain resolved. 12 point ROS unremarkable, unless noted above. Objective - Vital Signs/Intake and Output Vital Signs (last 24 hours): Temp Pulse Resp BP Pulse Ox 98.2 F 79 20 107/67 100 11/09/17 08:07 11/09/17 08:07 11/09/17 08:07 11/09/17 08:07 11/09/17 09:49 Intake and Output: 11/09/17 11/09/17 06:59 18:59 Intake Total 950 850 Output Total 1 Balance 949 850 - Medications Medications: Current Medications Sodium Chloride (Sodium Chloride 0.9%) 1,000 mls @ 80 mls/hr IV .[id number] [facility] Last Admin: 11/09/17 00:04 Dose: 80 mls/hr Ciprofloxacin (Cipro 400mg/200ml Dsw) 400 mg in 200 mls @ 133 mls/hr IVPB Q12H [facility] PRN Reason: Protocol Last Admin: 11/09/17 00:03 Dose: 133 mls/hr Metronidazole (Flagyl) 500 mg in 100 mls @ 100 mls/hr IVPB Q8 [facility] PRN Reason: Protocol Last Admin: 11/09/17 05:55 Dose: 100 mls/hr Ketorolac Tromethamine (Toradol) 30 mg IVP Q8H PRN PRN Reason: Pain, severe (8-10) Last Admin: 11/09/17 04:02 Dose: 30 mg Ondansetron HCl (Zofran Inj) 4 mg IVP Q6 PRN PRN Reason: Nausea/Vomiting Pantoprazole Sodium (Protonix Inj) 40 mg IVP DAILY [facility] Last Admin: 11/08/17 10:06 Dose: 40 mg - Labs Labs: 11/08/17 07:42 11/08/17 07:42 PT 12.8 SECONDS (9.7-12.2) H 11/07/17 01:54 INR 1.1 11/07/17 01:54 APTT 29 SECONDS (21-34) 11/07/17 01:54 - Constitutional Appears: No Acute Distress - Head Exam Head Exam: NORMAL INSPECTION, NORMOCEPHALIC - Eye Exam Eye Exam: EOMI, Normal appearance, PERRL Pupil Exam: NORMAL ACCOMODATION - ENT Exam ENT Exam: Mucous Membranes Moist - Respiratory Exam Respiratory Exam: Clear to Ausculation Bilateral, NORMAL BREATHING PATTERN - Cardiovascular Exam Cardiovascular Exam: REGULAR RHYTHM - GI/Abdominal Exam GI & Abdominal Exam: Soft, Normal Bowel Sounds. absent: Distended, Firm, Tenderness, Organomegaly - Rectal Exam Rectal Exam: Deferred - Extremities Exam Extremities Exam: Normal Inspection. absent: Pedal Edema, Tenderness - Neurological Exam Neurological Exam: Alert, Awake, CN II-XII Intact, Oriented x3 - Psychiatric Exam Psychiatric exam: Normal Affect, Normal Mood - Skin Skin Exam: Dry, Intact, Normal Color, Warm Assessment and Plan - Assessment and Plan (Free Text) Assessment: 37 year old Female with PMHx significant for Iron Deficiency Anemia who presented to the hospital with 3 days of fever, chills, weakness, abdominal pain, and nonbloody diarrhea; admitted for colitis. Colitis - likely infectious Anemia secondary to Iron Deficiency Anemia and Fibroid Uterus Plan: - Advance diet as tolerated - Pending stool studies, cdiff negative - Continue with antibiotic therapy (upon discharge- patient is to continue PO Ciprofloxacin and Flagyl for total 7-10 days) - Patient will eventually benefit from elective outpatient colonoscopy 2 months following resolution of acute symptoms. - Recommend EMPLOYMENT CONSULTANT referral for management of fibroid uterus. - Will continue to monitor patient's clinical course. DW Nakita Singh DO, PGY-1 <Joesph Faulkner - Last Filed: 11/09/17 12:01> Objective - Vital Signs/Intake and Output Vital Signs (last 24 hours): Temp Pulse Resp BP Pulse Ox 98.2 F 79 20 107/67 100 11/09/17 08:07 11/09/17 08:07 11/09/17 08:07 11/09/17 08:07 11/09/17 09:49 Intake and Output: 11/09/17 11/09/17 06:59 18:59 Intake Total 950 850 Output Total 1 Balance 949 850 - Medications Medications: Current Medications Sodium Chloride (Sodium Chloride 0.9%) 1,000 mls @ 80 mls/hr IV .[id number] [facility] Last Admin: 11/09/17 00:04 Dose: 80 mls/hr Ciprofloxacin (Cipro 400mg/200ml Dsw) 400 mg in 200 mls @ 133 mls/hr IVPB Q12H [facility] PRN Reason: Protocol Last Admin: 11/09/17 00:03 Dose: 133 mls/hr Metronidazole (Flagyl) 500 mg in 100 mls @ 100 mls/hr IVPB Q8 [facility] PRN Reason: Protocol Last Admin: 11/09/17 05:55 Dose: 100 mls/hr Ketorolac Tromethamine (Toradol) 30 mg IVP Q8H PRN PRN Reason: Pain, severe (8-10) Last Admin: 11/09/17 04:02 Dose: 30 mg Ondansetron HCl (Zofran Inj) 4 mg IVP Q6 PRN PRN Reason: Nausea/Vomiting Pantoprazole Sodium (Protonix Inj) 40 mg IVP DAILY [facility] Last Admin: 11/09/17 10:44 Dose: 40 mg - Labs Labs: 11/08/17 07:42 11/08/17 07:42 PT 12.8 SECONDS (9.7-12.2) H 11/07/17 01:54 INR 1.1 11/07/17 01:54 APTT 29 SECONDS (21-34) 11/07/17 01:54 Attending/Attestation - Attestation I have personally seen and examined this patient.: Yes I have fully participated in the care of the patient.: Yes I have reviewed all pertinent clinical information, including history, physical exam and plan: Yes Notes (Text): 11/09/17 12:00 37 year old female with h/o GILBERT admitted with acute onset diarrhea found to have colitis, likely infectious. Recommend 7-10 day course of antibiotics. Recommend outpatient colonoscopy in 6-8 weeks. Diet as tolerated. Ok for discharge. Will sign off.
[2017-11-09 15:18] LABS: EOS # 0.1 K/uL (0.0-0.7); EOS % 1.6 % (0.0-4.0); HEMOGLOBIN 9.1 g/dL (11.0-16.0); LYMPH # 1.7 K/uL (1.0-4.3); LYMPH % 39.8 % (20.0-40.0); MEAN CORPUSCULAR HEMOGLOBIN 24.3 pg (27.0-31.0); MEAN PLATELET VOLUME 7.6 fL (7.2-11.7); MONO # 0.5 K/uL (0.0-0.8); MONO % 10.9 % (0.0-10.0); NEUT % 46.7 % (50.0-75.0); NRBC % 0.1 % (0.0-2.0); RBC 3.72 Mil/uL (3.80-5.20); RED CELL DISTRIBUTION WIDTH 16.2 % (11.5-14.5); WHITE BLOOD COUNT 4.2 K/uL (4.8-10.8)
[2017-11-09 15:28] LABS: BLOOD UREA NITROGEN 4 mg/dL (7-17); GFR AFRICAN-AMERICAN > 60; GFR NON-AFRICAN AMERICAN > 60
--- NOTE | 2017-11-09 16:51 | CP.PCM.PN ---
Subjective - Date & Time of Evaluation Date of Evaluation: 11/09/17 Time of Evaluation: 16:51 - Subjective Subjective: Alert, awake, no sob or abdominal pains. Objective - Vital Signs/Intake and Output Vital Signs (last 24 hours): Temp Pulse Resp BP Pulse Ox 98.2 F 79 20 107/67 100 11/09/17 08:07 11/09/17 08:07 11/09/17 08:07 11/09/17 08:07 11/09/17 12:00 Intake and Output: 11/09/17 11/09/17 06:59 18:59 Intake Total 950 1910 Output Total 1 Balance 949 1910 - Medications Medications: Current Medications Sodium Chloride (Sodium Chloride 0.9%) 1,000 mls @ 80 mls/hr IV .[id number] [facility] Last Admin: 11/09/17 11:00 Dose: Not Given Ciprofloxacin (Cipro 400mg/200ml Dsw) 400 mg in 200 mls @ 133 mls/hr IVPB Q12H [facility] PRN Reason: Protocol Last Admin: 11/09/17 12:02 Dose: 133 mls/hr Metronidazole (Flagyl) 500 mg in 100 mls @ 100 mls/hr IVPB Q8 [facility] PRN Reason: Protocol Last Admin: 11/09/17 14:27 Dose: 100 mls/hr Ondansetron HCl (Zofran Inj) 4 mg IVP Q6 PRN PRN Reason: Nausea/Vomiting Pantoprazole Sodium (Protonix Inj) 40 mg IVP DAILY [facility] Last Admin: 11/09/17 10:44 Dose: 40 mg - Labs Labs: 11/09/17 15:09 11/09/17 15:09 PT 12.8 SECONDS (9.7-12.2) H 11/07/17 01:54 INR 1.1 11/07/17 01:54 APTT 29 SECONDS (21-34) 11/07/17 01:54 Assessment and Plan - Assessment and Plan (Free Text) Assessment: Patient admitted with colitis, dehydration, seen and examined. Denies abdominal pain or diarrhea. Cleared by GI for discharge home on cipro and flagyl for [address] Chelle Carlson, plan to discharge home today. Advised to follow up with PMD in 1 week.Also to follow up with GI for colonoscopy when more stable.
[2017-11-09 17:52] VITALS: BP 107/64; PULSE 64; TEMP 97.9; O2SAT 97
--- NOTE | 2017-11-09 18:33 | CP.PCM.PN ---
Subjective - Date & Time of Evaluation Date of Evaluation: 11/09/17 Time of Evaluation: 08:00 - Subjective Subjective: clinically same Objective - Vital Signs/Intake and Output Vital Signs (last 24 hours): Temp Pulse Resp BP Pulse Ox 97.9 F 64 20 107/64 97 11/09/17 15:15 11/09/17 15:15 11/09/17 15:15 11/09/17 15:15 11/09/17 15:15 Intake and Output: 11/09/17 11/09/17 06:59 18:59 Intake Total 950 1910 Output Total 1 Balance 949 1910 - Labs Labs: 11/09/17 15:09 11/09/17 15:09 PT 12.8 SECONDS (9.7-12.2) H 11/07/17 01:54 INR 1.1 11/07/17 01:54 APTT 29 SECONDS (21-34) 11/07/17 01:54 - Constitutional Appears: Well - Head Exam Head Exam: ATRAUMATIC, NORMAL INSPECTION, NORMOCEPHALIC - Eye Exam Eye Exam: EOMI, Normal appearance, PERRL Pupil Exam: NORMAL ACCOMODATION, PERRL - ENT Exam ENT Exam: Mucous Membranes Moist, Normal Exam - Neck Exam Neck Exam: Full ROM, Normal Inspection. absent: Lymphadenopathy - Respiratory Exam Respiratory Exam: Decreased Breath Sounds - Cardiovascular Exam Cardiovascular Exam: REGULAR RHYTHM, +S1, +S2 - GI/Abdominal Exam GI & Abdominal Exam: Soft, Diminished Bowel Sounds - Rectal Exam Rectal Exam: Deferred
[2017-11-10] MEDS ORDERED: Influenza Vaccine 60 mcg/0.5 mL SYR (4YR UP) IM ONE (10:00)
[2017-11-10] MEDS ORDERED: Pneumococcal 23-Valent Vaccine IM ONE (10:00)
== END 2017-11-09 18:30 | disposition home or self-care (01) ==
LOC: C.ER 23:25 → SUPCPDRO 23:25 → C.3T 11-07 05:27 → INTOOBSV 11-07 05:27
PROVIDERS: ADMIT Internal Medicine Nephrology; ATTEND Internal Medicine Nephrology
DX: D25.9 Leiomyoma of uterus, unspecified (principal); D50.9 Iron deficiency anemia, unspecified; E86.0 Dehydration; E87.6 Hypokalemia; K52.9 Noninfective gastroenteritis and colitis, unspecified
CPT/HCPCS: 36415; 74177; 80048; 80053; 81001; 83690; 84703; 85025; 85610; 85730; 87045; 87177; 87209; 87230; 87804; 90471; 90674; 90732; 96360; 96374; 99285; C9113; G0378; J0744; J1885; J2405; J2765; J7040; Q9967

== ENCOUNTER 2018-03-13 17:47 | Emergency (ER) | payer MEDICAID ==
[2018-03-13 17:58] VITALS: BP 116/74; PULSE 78; RESP 18; TEMP 98.4; O2SAT 100
--- NOTE | 2018-03-13 18:12 | C.PDOC ---
History Of Present Illness 38-year-old female presents to the ER for complaints of lesions to her left lower lip that developed today. Of note, patient's daughter is here with shingles. Patient notes the area is itchy. Otherwise she denies any fever or chills. Time Seen by Provider: 03/13/18 18:04 Chief Complaint (Nursing): Abnormal Skin Integrity History Per: Patient History/Exam Limitations: no limitations Onset/Duration Of Symptoms: Hrs Current Symptoms Are (Timing): Still Present Past Medical History Reviewed: Historical Data, Nursing Documentation, Vital Signs Vital Signs: Last Vital Signs Temp 98.4 F 03/13/18 18:20 Pulse 78 03/13/18 18:20 Resp 18 03/13/18 18:20 BP 116/74 03/13/18 18:20 Pulse Ox 100 03/13/18 18:23 - Medical History PMH: Anemia Surgical History: Appendectomy Family History: States: No Known Family Hx - Social History Hx Alcohol Use: Yes Hx Substance Use: No - Immunization History Hx Tetanus Toxoid Vaccination: No Hx Influenza Vaccination: No Hx Pneumococcal Vaccination: No Review Of Systems Except As Marked, All Systems Reviewed And Found Negative. Constitutional: Negative for: Fever, Chills Skin: Positive for: Lesions (to lower lip) Physical Exam - Physical Exam Appears: Well, Non-toxic, No Acute Distress Skin: Warm, Dry Head: Atraumatic, Normacephalic Eye(s): bilateral: Normal Inspection Oral Mucosa: Moist Lips: Lesions (Few vesicles noted to the lower lip) Throat: Normal, No Erythema, No Exudate, No Drooling, No Mass Neck: Normal ROM, Supple Chest: Symmetrical Extremity: Bilateral: Atraumatic, Normal ROM Neurological/Psych: Oriented x3, Normal Speech ED Course And Treatment O2 Sat by Pulse Oximetry: 100 (RA) Pulse Ox Interpretation: Normal Medical Decision Making Medical Decision Making: Impression: early shingles Plan: Counseled patient regarding diagnosis and treatment plan. Patient will be discharged home with antiviral medication. Advised to take medications as needed and follow up with the clinic for further evaluation. Disposition Counseled Patient/Family Regarding: Diagnosis, Need For Followup, Rx Given - Disposition Disposition: HOME/ ROUTINE Disposition Time: 18:12 Condition: STABLE Prescriptions: Acyclovir [Zovirax] 400 mg PO 5XD #35 tab Instructions: Cold Sores (Oral Herpes) Forms: [facility] (Senegalese) Print Language: [place] - POA Present On Arrival: None - Clinical Impression Clinical Impression: Herpes simplex - PA / [place] PILOT / Resident Statement MD/DO has reviewed & agrees with the documentation as recorded. - Scribe Statement The provider has reviewed the documentation as recorded by the Scribe (Tala Mishra) All medical record entries made by the Scribe were at my direction and personally dictated by me. I have reviewed the chart and agree that the record accurately reflects my personal performance of the history, physical exam, medical decision making, and the department course for this patient. I have also personally directed, reviewed, and agree with the discharge instructions and disposition.
== END 2018-03-13 18:20 | disposition home or self-care (01) ==
LOC: C.ER 17:47
DX: B00.1 Herpesviral vesicular dermatitis (principal)